=== PATIENT | female | born 1975 | race Caucasian/White ===

== ENCOUNTER 2017-01-31 19:45 | Emergency (ER) | payer OTHER ==
[2017-01-31 21:36] VITALS: BP 115/76
--- NOTE | 2017-01-31 22:02 | UC ---
Hand/Wrist HPI - HPI Summary HPI Summary: Pt presents with progessive discomfort, mild edema dorsum left hand. Pt is LHD. PT states pain worse with flexion of wrist, extension of fingers. Pt denies a specific trauma, but states did grab her dog's collar tight and may have pulled. Pt has taken motrin / apap with little relief. 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 States does type at work. No erythema. No ecchymosis. No fevers. Pt RHD. No weakness. mild paresthesia fingers Pt's medications reviewed this visit - History Of Current Complaint Chief Complaint: UCUpperExtremity Stated Complaint: ARM PAIN Time Seen by Provider: 01/31/17 21:50 Hx Obtained From: Patient Hx Last Menstrual Period: MIRENA IUD ?: No Onset/Duration: Gradual Onset Severity Initially: Mild Severity Currently: Mild Character Of Pain: Sharp, Aching Aggravating Factor(s): Movement, Lifting, Extension Alleviating: Rest Associated Signs And Symptoms: Positive: Swelling, Numbness/Tingling. Negative : Redness, Bruising, Fever, Weakness - Allergies/Home Medications Allergies/Adverse Reactions: Allergies Allergy/AdvReac Type Severity Reaction Status Date / Time Penicillins Allergy Intermediate Rash Verified 01/31/17 21:36 baby oil Allergy Unknown Unknown Uncoded 11/08/15 11:20 Reaction Details Home Medications: Home Medications Acetaminophen TAB* [Tylenol TAB*] 325 mg PO PRN 01/31/17 [History] Valproic Acid CAP(*) [Depakene CAP(*)] 01/31/17 [History] PMH/Surg Hx/FS Hx/Imm Hx Previously Healthy: Yes Endocrine History: Thyroid Disease Cardiovascular History: Hypertension - Surgical History Surgical History: Yes Surgery Procedure, Year, and Place: csection 09/03 - twins, PLASTIC SURGERY, MOLE REMOVAL - Family History Known Family History: Positive: None - Social History Occupation: Employed Full-time Lives: With Family Alcohol Use: Rare Substance Use Type: None Smoking Status (MU): Former Smoker Length of Time of Smoking/Using Tobacco: QUIT 2010 Review of Systems Constitutional: Negative Skin: Other - Left dorsum edema Eyes: Negative ENT: Negative Respiratory: Negative Cardiovascular: Negative Gastrointestinal: Negative Genitourinary: Negative Motor: Negative Neurovascular: Negative Musculoskeletal: Other: - left hand Neurological: Negative Psychological: Negative All Other Systems Reviewed And Are Negative: Yes Physical Exam Triage Information Reviewed: Yes Appearance: Well-Appearing, No Pain Distress, Well-Nourished Vital Signs: Initial Vital Signs Temp 97.4 F 01/31/17 21:32 Pulse 70 01/31/17 21:32 Resp 16 01/31/17 21:32 BP 115/76 01/31/17 21:32 Pulse Ox 99 01/31/17 21:32 Vital Signs Reviewed: Yes Eyes: Negative: Discharge ENT: Positive: Hearing grossly normal Neck: Positive: Supple, Nontender Respiratory: Positive: Chest non-tender, Lungs clear, Normal breath sounds, No respiratory distress, No accessory muscle use Cardiovascular: Positive: Other: - 2+ radial 2 + ulnar CBT < 2 sec all digits Musculoskeletal: Positive: Other: - + flex/ext elbow + pronate/supinate + TTP 2 /3/4 MC dorsum + flex/ext wrist with pain referred to digits on dorsum No palmar discomfort Neurological Exam: Normal Neurological: Positive: Alert, Other: - + thumb up, a ok, finger spread, finger cross Psychological Exam: Normal Skin Exam: Normal Diagnostics - Radiology No standard instances Xray Interpretation: No Acute Changes - no fx Radiology Interpretation Completed By: ED Physician Hand/Wrist Course/Dx - Course Course Of Treatment: Pt with persistent discomfort dorsum left hand no direct trauma. Pt did have a pull when was gripping dog collar. Pt with pain along dosrum only - mild edema. no warm, edema. Will check xray. if neg, will place spling. elevate. rest. motrin/apap. PCP f/u pt in agreement with plan - Differential Dx/Diagnosis Provider Diagnoses: hand pain Discharge - Discharge Plan Condition: Stable Disposition: HOME Patient Education Materials: Hand Sprain (ED) Referrals: Rocky Nascimento NP [Nurse Practitioner] - Additional Instructions: - wear splint for comfort and support - elevate your hand to help with swelling and pain - apply ice (Wrapped in a towel) 20 minutes at a time, 2- 3times a day - Okay to alternate ibuprofen (advil, motrin) and tylenol every 3 hours for pain. Take with food. do NOT take for more than 3-4 days - The doctor who evaluated you tonight will follow-up on your xray tomorrow- if the radiologist identifies an injury, the provider will contact you - Contact your doctor to schedule a follow-up appointment this week Contact your doctor or return with questions or concerns -
--- NOTE | 2017-02-01 07:19 | RAD ---
INDICATION: Left wrist pain. TECHNIQUE: 3 views of the left wrist were obtained. FINDINGS: The bones are in normal alignment. No fracture is seen. Joint spaces appear maintained. IMPRESSION: NO EVIDENCE FOR FRACTURE.
== END 2017-01-31 22:38 | disposition home or self-care (01) ==
LOC: UCEAST 19:45
DX: M79.642 Pain in left hand (principal); R60.0 Localized edema; E07.9 Disorder of thyroid, unspecified; I10 Essential (primary) hypertension; Z88.0 Allergy status to penicillin; Z87.891 Personal history of nicotine dependence
CPT/HCPCS: 99211; G0463

== ENCOUNTER 2017-07-01 08:33 | Emergency (ER) | payer OTHER ==
[2017-07-01 08:42] VITALS: BP 116/58
--- NOTE | 2017-07-01 08:51 | UC ---
Ear Complaint HPI - HPI Summary HPI Summary: 41 Y/O female presents with decreased hearing in L ear with "popping" sound this morning upon waking. States did have recent upper respiratory symptoms with sinus congestion. Medical history significant for hypothyroidism and "pre diabetes". Medications reviewed at this visit. - History of Current Complaint Chief Complaint: UCEar Stated Complaint: EAR COMPLAINT Time Seen by Provider: 07/01/17 08:34 Hx Obtained From: Patient Hx Last Menstrual Period: iud ?: No Onset/Duration: Gradual Onset Severity Initially: Mild Severity Currently: None Pain Intensity: 0 Pain Scale Used: 0-10 Numeric Aggravating Factors: Nothing - Allergies/Home Medications Allergies/Adverse Reactions: Allergies Allergy/AdvReac Type Severity Reaction Status Date / Time Penicillins Allergy Intermediate Rash Verified 07/01/17 08:41 baby oil Allergy Unknown Unknown Uncoded 07/01/17 08:41 Reaction Details PMH/Surg Hx/FS Hx/Imm Hx Previously Healthy: Yes Endocrine History: Hypothyroidism - Surgical History Surgical History: Yes Surgery Procedure, Year, and Place: csection 09/03 - twins, PLASTIC SURGERY, MOLE REMOVAL - Family History Known Family History: Positive: None - Social History Alcohol Use: Rare Substance Use Type: None Smoking Status (MU): Former Smoker Length of Time of Smoking/Using Tobacco: QUIT 2010 Review of Systems Constitutional: Negative Skin: Negative Eyes: Negative ENT: Negative Respiratory: Negative Cardiovascular: Negative Gastrointestinal: Negative Genitourinary: Negative Motor: Negative Neurovascular: Negative Musculoskeletal: Negative Neurological: Negative Psychological: Negative Is Patient Immunocompromised?: No All Other Systems Reviewed And Are Negative: Yes Physical Exam Triage Information Reviewed: Yes Vital Signs: Initial Vital Signs Temp 98.0 F 07/01/17 08:37 Pulse 70 07/01/17 08:37 Resp 18 07/01/17 08:37 BP 116/58 07/01/17 08:37 Pulse Ox 100 07/01/17 08:37 Vital Signs Reviewed: Yes Eye Exam: Normal Eyes: Positive: Conjunctiva Clear ENT Exam: Normal Respiratory Exam: Normal Cardiovascular Exam: Normal Cardiovascular: Positive: RRR Ear Complaint Course/Dx - Differential Dx/Diagnosis Differential Diagnosis/HQI/PQRI: Cerumen Impaction, Otitis Media Provider Diagnoses: Effusion middle ear Discharge - Discharge Plan Condition: Stable Disposition: HOME Patient Education Materials: Ear Infection (ED) Referrals: Cathy Simpson MD [Primary Care Provider] - Additional Instructions: You have fluid behind your ear but no signs of infection. Please return to urgent care for if you experience fever, chills, or increased pain.
== END 2017-07-01 09:10 | disposition home or self-care (01) ==
LOC: UCEAST 08:33
DX: H74.8X2 Other specified disorders of left middle ear and mastoid (principal); Z87.891 Personal history of nicotine dependence
CPT/HCPCS: 99211; G0463

== ENCOUNTER 2017-07-18 18:02 | Emergency (ER) | payer OTHER ==
[2017-07-18 20:44] VITALS: BP 118/76
--- NOTE | 2017-07-18 20:45 | UC ---
Ear Complaint HPI - HPI Summary HPI Summary: Pt presents with left ear pain and decreased hearing from that ear for the last 3-4 weeks. She tells me that she has seen multiple providers for this and has been referred to ENT - sees them 07/20 for initial visit. Has tried netti pot, antihistamine, antibiotics, and steroids with no relief. Denies fever, chills, sore throat, neck pain, headache, dizziness, tinnitus, or discharge. - History of Current Complaint Chief Complaint: UCEar Stated Complaint: EAR PAIN Time Seen by Provider: 07/18/17 20:38 Hx Obtained From: Patient Hx Last Menstrual Period: MIRENA IUD Onset/Duration: Gradual Onset Severity Initially: Moderate Severity Currently: Moderate Pain Intensity: 5 Pain Scale Used: 0-10 Numeric - Allergies/Home Medications Allergies/Adverse Reactions: Allergies Allergy/AdvReac Type Severity Reaction Status Date / Time Penicillins Allergy Severe Rash Verified 07/18/17 20:44 baby oil Allergy Unknown Unknown Uncoded 07/18/17 20:44 Reaction Details Home Medications: Home Medications Clindamycin HCl 07/18/17 [History] Naproxen Sodium [Aleve] 220 mg PO ONCE PRN 07/18/17 [History Confirmed 07/18/17] Pseudoephedrine TAB* [Sudafed TAB*] 60 mg PO ONCE PRN 07/18/17 [History Confirmed 07/18/17] methylPREDNISolone [Medrol Dosepak 4 MG*] 0 mg PO .SEE NANCY INSTRUCTION 07/18/17 [History Confirmed 07/18/17] PMH/Surg Hx/FS Hx/Imm Hx Psychological History: Anxiety, Depression - Surgical History Surgical History: Yes Surgery Procedure, Year, and Place: csection 09/03 - twins, PLASTIC SURGERY, MOLE REMOVAL - Family History Known Family History: Positive: None - Social History Occupation: Employed Full-time Alcohol Use: Occasionally Substance Use Type: None Smoking Status (MU): Former Smoker Length of Time of Smoking/Using Tobacco: QUIT 2010 Review of Systems Constitutional: Negative Skin: Negative Eyes: Negative ENT: Ear Ache Respiratory: Negative Cardiovascular: Negative Neurological: Negative Psychological: Negative All Other Systems Reviewed And Are Negative: Yes Physical Exam Triage Information Reviewed: Yes Appearance: Well-Appearing, No Pain Distress, Obese Vital Signs: Initial Vital Signs Temp 97.8 F 07/18/17 20:40 Pulse 82 07/18/17 20:40 Resp 16 07/18/17 20:40 BP 118/76 07/18/17 20:40 Pulse Ox 100 07/18/17 20:40 Vital Signs Reviewed: Yes Eyes: Positive: Conjunctiva Clear. Negative: Conjunctiva Inflamed, Discharge ENT: Positive: Hearing grossly normal, Pharynx normal, TMs normal, Uvula midline. Negative: Pharyngeal erythema, Nasal congestion, Nasal drainage, TM bulging, TM dull, TM red, Tonsillar swelling, Tonsillar exudate, Hoarse voice, Sinus tenderness Neck: Positive: Supple, Nontender, No Lymphadenopathy Respiratory: Positive: Lungs clear, Normal breath sounds, No respiratory distress, No accessory muscle use Cardiovascular: Positive: RRR, No Murmur, Pulses Normal Neurological: Positive: Alert, Other: - CN II-XII grossly intact. Psychological: Positive: Age Appropriate Behavior Skin: Negative: rashes Ear Complaint Course/Dx - Course Course Of Treatment: Left ear pain of unknown etiology. I advised her to try flonase for possible eustachian tube dysfunction and to keep her appt with ENT in 2 days. - Differential Dx/Diagnosis Provider Diagnoses: Left ear pain Discharge - Discharge Plan Condition: Stable Disposition: HOME Prescriptions: Fluticasone NASAL SPRAY 50MCG* [Flonase NASAL SPRAY 50MCG*] 2 spray LEFT NARE DAILY #1 btl Patient Education Materials: Earache (ED) Referrals: Cathy Simpson MD [Primary Care Provider] - Additional Instructions: If you develop a fever, shortness of breath, chest pain, new or worsening symptoms - please call your PCP or go to the ED. 1) Please keep your appointment with ENT for 07/20 for follow up
== END 2017-07-18 21:55 | disposition home or self-care (01) ==
LOC: UCEAST 18:02
DX: H92.02 Otalgia, left ear (principal); Z87.891 Personal history of nicotine dependence
CPT/HCPCS: 99212; G0463

== ENCOUNTER 2018-03-09 21:24 | Emergency (ER) | payer OTHER ==
[2018-03-09 21:43] VITALS: BP 123/59
--- NOTE | 2018-03-09 21:58 | UC ---
Respiratory Complaint HPI - HPI Summary HPI Summary: Patient presents to urgent care with her daughter. Patient's a 42-year-old female who states over the last 3-4 days she's progressively had the sense that she can't take a deep breath, patient with pleuritic chest pain, and patient states has some chest heaviness. Patient states she hasn't been sleeping well related to this. Patient denies cough. Patient denies a fever. Patient states she had a little bit of head congestion and she's not sure she has postnasal drip. Patient has not taken any medication to try to treat this. Patient does not have any wheezing or or was sling. Patient states she spoke to her PCP where the office and where she is employed today. PCP stated it could be a virus. Patient states tonight it seemed like her breathing was getting worse, patient states she started to feel panicky, so patient's that she decided to come get checked. Patient does not have a history of blood clots. Patient does take hormones for control and a Mirena ring. Patient has no recent travel, no calf pain. Patient denies cardiac history. Patient does not have a history of asthma, does not smoke, does not have any remote history lung disease. Patient denies sick contacts. She denies headache or vision changes. Pt's medications reviewed this visit - History of Current Complaint Chief Complaint: UCChestPain Stated Complaint: DIFFICULTY BREATHING Time Seen by Provider: 03/09/18 21:57 Hx Obtained From: Patient Hx Last Menstrual Period: implant Pain Intensity: 0 - Allergies/Home Medications Allergies/Adverse Reactions: Allergies Allergy/AdvReac Type Severity Reaction Status Date / Time Penicillins Allergy Severe Rash Verified 03/09/18 21:43 baby oil Allergy Unknown Unknown Uncoded 07/18/17 20:44 Reaction Details Home Medications: Home Medications Fexofenadine/Pseudoephedrine [Ivette-D 24 Hour Tablet] 1 tab PO DAILY 03/09/18 [History Confirmed 03/09/18] PMH/Surg Hx/FS Hx/Imm Hx Previously Healthy: Yes - Surgical History Surgical History: Yes Surgery Procedure, Year, and Place: csection 09/03 - twins, PLASTIC SURGERY, MOLE REMOVAL - Family History Known Family History: Positive: None Family History: no h/o coag d/o - Social History Alcohol Use: Rare Substance Use Type: None Smoking Status (MU): Former Smoker Length of Time of Smoking/Using Tobacco: QUIT 2010 Review of Systems Constitutional: Negative Respiratory: Shortness Of Breath Cardiovascular: Chest Pain All Other Systems Reviewed And Are Negative: Yes Physical Exam - Summary Physical Exam Summary: Vital Signs Reviewed: Yes A+Ox3, no distress Eyes: Conjunctiva Clear, ASHLEIGH. EOM intact and full ENT: Hearing grossly normal TM x 2 clear, mmoist, uvula midline, no exudate, no erythema Neck: Positive: Supple, no bruits Respiratory: Positive: No respiratory distress, No accessory muscle use + CTA throughout no w/r Cardiovascular: RRR nl s1, s2 no m/r CBT <2 sec, no chest wall pain with palpation abd soft + BS nt/nd no guarding, no distension Musculoskeletal Exam: MCNULTY x 4 without difficulty Strength Intact, ROM Intact Neurological: Positive: Alert, + sensation throughout Psychological: Positive: Normal Response To Family Skin: Positive: no rash, no ecchymosis Triage Information Reviewed: Yes Vital Signs: Initial Vital Signs Temp 98 F 03/09/18 21:40 Pulse 64 03/09/18 21:40 Resp 16 03/09/18 21:40 BP 123/59 03/09/18 21:40 Pulse Ox 98 03/09/18 21:40 UC Diagnostic Evaluation - Laboratory O2 Sat by Pulse Oximetry: 98 - EKG Cardiac Rate: NL Cardiac Rhythm: Sinus: Normal Ectopy: None Respiratory Course/Dx - Course Course Of Treatment: Pt present with 4 days progressive feeling MICHELLE, pleuritic chest pain and feeling cheest tightness. Pt had mild head congestion earlier this we- improved. no analgesia taken. Pt with no acute changes to EKG, stable VS. Pt with progressive sx x 4 days - differential includes PE, CAD. recommend pt to ED for further eval. Will give ASA. oxygen. iv. transfer by [place]. Pt comfortable and in agreement with plan. report to [facility] in ED at 10:15pm - Differential Dx/Diagnosis Provider Diagnoses: pleuritic CP, SOB Discharge - Sign-Out/Discharge Documenting (check all that apply): Patient Departure All imaging exams completed and their final reports reviewed: No Studies - Discharge Plan Condition: Stable Disposition: TRANS HIGHER LVL OF CARE FAC Referrals: Cathy Simpson MD [Primary Care Provider] - - Billing Disposition and Condition Condition: STABLE Disposition: Trans Higher Lvl of Care Fac
[2018-03-09] MEDS ORDERED: Aspirin 81 mg CHEW TAB* 81 MG TAB.CHEW PO ONE (22:14)
[2018-03-09] MEDS ORDERED: NS 0.9% 1000 ML* 1,000 ML IV ONE (22:15)
--- OUTSIDE RECORDS SUMMARY | 2018-03-09 22:19 | XMS REPORT | Continuity of Care Document ---
:1975 External Reference #:[id number] Author Name Sean Dunlap MD Address [address] [place] [address] Care Team Providers Name Role Phone Cathy Alcala DR. Primary Care Physician Unavailable Payers Type Date Identification Numbers Payment Provider Subscriber Policy Number: [id number] [facility] Radha Burns PayID: [id number] [address] [address] [place] [address] Advance Directives Description No Information Available Problems Date Description Provider Status Onset: 2017 Chronic rhinitis Sean Dunlap MD Active Onset: 2017 Other specified disorders of Eustachian Sean Dunlap MD Active tube, bilateral Family History Date Family Member(s) Problem(s) Comments General Allergies General Hearing Loss General Heart Attack General Heart Disease General Thyroid Disease Social History Type Date Description Comments Sex Unknown Occupation Unknown Tobacco Use Start: Unknown End: Unknown Former Cigarette Smoker 1 Pack Daily Tobacco Use Start: Unknown Never Smoked Cigars Tobacco Use Start: Unknown Never Smoked A Pipe Smokeless Tobacco Never Used Smokeless Tobacco ETOH Use Currently rarely consumes alcohol Allergies, Adverse Reactions, Alerts Date Description Reaction Status Severity Comments 2017 Penicillin Active 2017 Proxibarbal Active Medications Medication Date Status Form Strength Qnty SIG Indications Ordering Provider Fexofenadine 00/00/ Active Tablets 180mg Unknown HCL 0000 Buspirone HCL // Active Tablets 5mg Take 2 Unknown 0000 Tablets By Mouth In The Morning And 1 Tablet AT Bedtime Gabapentin 00// Active Capsules 100mg Take 1-3 Unknown 0000 Capsules By Mouth Every Night AT Bedtime as Directed Divalproex / Active Tablets DR 250mg Take 1 Unknown Sodium 0000 Tablet By Mouth Every Night Fluticasone 00/ Active Suspension 50mcg/Act Use 2 Unknown Propionate 0000 Sprays In The Left Nostril Daily Multivitamin / Active Tablets as Unknown Adult 0000 directed Fish Oil 00/ Active Capsules 1000mg 1 by mouth Unknown 0000 every day Melatonin 00/ Active Capsules 10mg 2 by mouth Unknown 0000 every at bedtime as needed Acidophilus 00// Active Capsules Unknown 0000 Adrenatone / Active Capsules Unknown 0000 Vitamin D-3 / Active Tablets 5000Unit 1 by mouth Unknown 0000 every day Immunizations Description No Information Available Vital Signs Date Vital Result Comment 02/08/2018 2:25pm Weight 295.00 lb Weight 133.812 kg Height 65.50 inches 5'5.50" Height in cm's 166.4 cm BMI (Body Mass Index) 48.3 kg/m2 2017 9:22am Weight 295.00 lb Weight 133.812 kg Height 65.50 inches 5'5.50" Height in cm's 166.4 cm BMI (Body Mass Index) 48.3 kg/m2 Results Description No Information Available Procedures Date Code Description Status 01/19/2018 10274 Prick Test Completed Encounters Type Date Location Provider Dx Diagnosis Office Visit 02/08/2018 [place] Cathy Gauthier Chronic rhinitis 2:45p 06/05/07 H69.83 Other specified disorders of Eustachian tube, bilateral Office Visit 2017 9:30a [place] 06/05/07 Cathy Gauthier Chronic rhinitis H69.83 Other specified disorders of Eustachian tube, bilateral Plan of Treatment 02/08/2018 - LUIS F Gauthier31.Christoph Chronic [id number] Other specified disorders of Eustachian tube, bilateralComments:She is improving while avoiding certain types of food, she is not interested in immunotherapy presently she under taping topical steroids as needed for her eustachian tube symptoms. Recheck when necessary. About 20 minutes was spent discussing the findings of the allergy testing and symptomatic control as well as avoidance techniques.
== END 2018-03-09 22:45 | disposition short-term general hospital (02) ==
LOC: UCEAST 21:24
DX: R07.89 Other chest pain (principal); R06.02 Shortness of breath; R06.00 Dyspnea, unspecified; Z88.0 Allergy status to penicillin; Z91.09 Other allergy status, other than to drugs and biological substances; Z87.891 Personal history of nicotine dependence
CPT/HCPCS: 93005; 99213; A9270-GY; G0463

== ENCOUNTER 2018-03-09 23:02 | Emergency (ER) | payer OTHER ==
--- NOTE | 2018-03-09 23:39 | ED ---
Shortness of Breath - HPI Summary HPI Summary: The patient is a 42 y/o F presenting to [facility] with a chief complaint of intermittent SOB for the last four days. She states she began feeling anxious and has since had trouble taking complete breaths, causing her to have some associated chest tightness, but she denies wheezing. She has talked to her PCP, who suggested that she could have a potential allergy. She has no hx of asthma or similar experiences. She reports that a week ago she forgot to take her bipolar medication, but realized immediately after she was feeling anxious and took the medication. She presented to [facility], where she had an EKG taken that was read as normal. She currently has some tightness in her chest. - History of Current Complaint Time Seen by Provider: 03/09/18 23:31 Hx Obtained From: Patient Onset/Duration: Sudden Onset, Lasting Days - four, Still Present Timing: Intermittent Episodes Lasting: Current Severity: Mild Dyspnea At: Rest Aggrevating Factors: Nothing Alleviating Factors: Nothing - Allergy/Home Medications Allergies/Adverse Reactions: Allergies Allergy/AdvReac Type Severity Reaction Status Date / Time Penicillins Allergy Severe Rash Verified 03/09/18 21:43 baby oil Allergy Unknown Unknown Uncoded 07/18/17 20:44 Reaction Details PMH/Surg Hx/FS Hx/Imm Hx Endocrine/Hematology History: Reports: Hx Diabetes - PRE DIABETES, Hx Thyroid Disease - HYPOTHYROID Psychiatric History: Reports: Hx Bipolar Disorder - Cancer History Hx Chemotherapy: No Hx Radiation Therapy: No - Surgical History Surgery Procedure, Year, and Place: csection 09/03 - twins, PLASTIC SURGERY, MOLE REMOVAL Infectious Disease History: Reports: Hx Shingles Denies: History Other Infectious Disease, Traveled Outside the [place] in Last 30 Days - Family History Known Family History: Positive: Cardiac Disease, Diabetes - Social History Alcohol Use: Rare Substance Use Type: Reports: None Smoking Status (MU): Former Smoker Length of Time of Smoking/Using Tobacco: QUIT 2010 Review of Systems Positive: Chest Pain - chest tightness Positive: Shortness Of Breath, Other - NEGATIVE: wheezing Positive: Anxious All Other Systems Reviewed And Are Negative: Yes Physical Exam - Summary Physical Exam Summary: Appearance: Well-appearing, Well-nourished, lying in bed comfortably Skin: Warm, dry, no obvious rash Eyes: sclera anicteric, no conjunctival pallor ENT: mucous membranes moist, pharynx appears normal Neck: Supple, nontender Respiratory: Clear to auscultation, no signs of respiratory distress Cardiovascular: Normal S1, S2. No murmurs. Normal distal pulses in tibial and radial bilaterally. Abdomen: Soft, nontender, normal active bowel sounds present Musculoskeletal: Normal, Strength/ROM Intact Neurological: A&Ox3, awake and alert, mentation is normal, speech is fluent and appropriate Psychiatric: affect is normal, does not appear anxious or depressed Triage Information Reviewed: Yes Vital Signs Reviewed: Yes Diagnostics - Laboratory Result Diagrams: 03/09/18 23:55 03/09/18 23:55 Lab Statement: Any lab studies that have been ordered have been reviewed, and results considered in the medical decision making process. - Radiology CXR Xray Interpretation: No Acute Changes - No acute disease. ED physician has reviewed this report. Radiology Interpretation Completed By: Radiologist Course/Dx - Diagnoses Provider Diagnoses: Dyspnea, Anxiety Discharge - Sign-Out/Discharge Documenting (check all that apply): Patient Departure - Patient will be discharged home. - Discharge Plan Condition: Good Disposition: HOME Patient Education Materials: Dyspnea (ED), Anxiety (ED) Referrals: Cathy Simpson MD [Primary Care Provider] - If Needed Additional Instructions: Hopefully your symptoms will start to improve as your medication gets back in your system. We did not find any evidence of a dangerous cause of your symptoms. - Billing Disposition and Condition Condition: GOOD Disposition: Home - Attestation Statements Document Initiated by Renibsvetlana: Yes Documenting Scribe: Mayda Holloway Provider For Whom Lisa is Documenting (Include Credential): Dr. Armaan Givens MD Scribe Attestation: Mayda Clayton scribed for Dr. Armaan Givens MD on 03/10/18 at 0145. Scribe Documentation Reviewed: Yes Provider Attestation: The documentation as recorded by the Mayda fuentes accurately reflects the service I personally performed and the decisions made by me, Dr. Armaan Givens MD
[2018-03-10 00:06] LABS: ABS Basophils 0.1 10^3/ul (0-0.2); ABS Eosinophils 0.1 10^3/ul (0-0.6); ABS Lymphocytes 2.6 10^3/ul (1.0-4.8); ABS Monocytes 0.5 10^3/ul (0-0.8); ABS Neutrophils 4.3 10^3/ul (1.5-7.7); ABS Nucleated RBC 0 10^3/ul; Eosinophil % 1.1 % (0-6); Hematocrit 39 % (35-47); Hemoglobin 13.1 g/dl (12.0-16.0); Lymphocyte % 34.6 % (25-47); Mean Corpuscular HGB Conc 34 g/dl (31-36); Mean Corpuscular Hemoglobin 30 pg (27-31); Mean Corpuscular Volume 89 fL (80-97); Mean Platelet Volume 9.7 um3 (7.4-10.4); Nucleated Red Blood Cells % 0.1; Platelet Count 183 10^3/ul (150-450); Red Blood Count 4.39 10^6/ul (4.00-5.40); Red Cell Distribution Width 14 % (10.5-15); White Blood Count 7.6 10^3/ul (3.5-10.8)
[2018-03-10 02:03] VITALS: BP 156/79
--- NOTE | 2018-03-10 08:52 | RAD ---
INDICATION: Dyspnea. Chest pain and slight shortness of breath over the last 3 days. COMPARISON: September 30, [address] TECHNIQUE: Dual energy PA and routine lateral views of the chest were obtained. REPORT: No focal pulmonary lesion, compelling alveolar consolidation, pleural effusion, pneumothorax. The heart, pulmonary vasculature, and mediastinal contours are unremarkable. IMPRESSION: #. No evidence for acute intrathoracic disease. R0
== END 2018-03-10 01:25 | disposition home or self-care (01) ==
LOC: ED 23:02
DX: R06.00 Dyspnea, unspecified (principal); F41.9 Anxiety disorder, unspecified; Z87.898 Personal history of other specified conditions; Z88.0 Allergy status to penicillin
CPT/HCPCS: 36415; 71046; 80053; 84484; 84702; 85025; 85379; 99283

== ENCOUNTER 2018-07-15 09:45 | Emergency (ER) | payer OTHER ==
[2018-07-15 10:10] VITALS: BP 132/83
--- NOTE | 2018-07-15 10:34 | UC ---
Respiratory Complaint HPI - HPI Summary HPI Summary: Patient is 42 year old female , who present today to the urgent care with upper respiratory for past 3 days. 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 She denies any fevers or body aches Denies chest pain or shortness of breath . Denies any abdominal pain , nausea or vomiting , diarrhea or constipation. - History of Current Complaint Chief Complaint: UCRespiratory Stated Complaint: THROAT PAIN Time Seen by Provider: 07/15/18 10:12 Hx Obtained From: Patient Hx Last Menstrual Period: mirena Pain Intensity: 5 - Allergies/Home Medications Allergies/Adverse Reactions: Allergies Allergy/AdvReac Type Severity Reaction Status Date / Time Penicillins Allergy Severe Rash Verified 07/15/18 10:10 baby oil Allergy Unknown Unknown Uncoded 07/18/17 20:44 Reaction Details PMH/Surg Hx/FS Hx/Imm Hx - Additional Past Medical History Additional PMH: Bipolar Fibromyalgia Previously Healthy: Yes - Surgical History Surgical History: Yes Surgery Procedure, Year, and Place: csection 09/03 - twins, PLASTIC SURGERY, MOLE REMOVAL - Family History Known Family History: Positive: Cardiac Disease, Diabetes - Social History Alcohol Use: Rare Substance Use Type: None Smoking Status (MU): Former Smoker Length of Time of Smoking/Using Tobacco: QUIT 2010 Review of Systems All Other Systems Reviewed And Are Negative: Yes Constitutional: Positive: Negative Skin: Positive: Negative Eyes: Positive: Negative ENT: Positive: Ear Ache - Bilateral, Other - Congestion Respiratory: Positive: Cough - Productive Cardiovascular: Positive: Negative Gastrointestinal: Positive: Negative Genitourinary: Positive: Negative Motor: Positive: Negative Neurovascular: Positive: Negative Musculoskeletal: Positive: Negative Neurological: Positive: Negative Psychological: Positive: Negative Is Patient Immunocompromised?: No Physical Exam - Summary Physical Exam Summary: Physical Exam: Const: Appears well. No signs of apparent distress present. Alert and oriented x 3. Musculo: Walks with a normal gait. Head/Face: Atraumatic, normocephalic on inspection. Eyes: EOMI and PERRLA in both eyes. Conjunctivae clear. No discharge noted ENT: Hearing normal, TM mildly red and bulging, worse on right, . No tenderness on palpation / manipulation of Tragus. No mastoid tenderness. No pharyngeal erythema or exudates . Uvula is midline. There is anterior cervical nontender lymphadenopathy noted. Respiratory: Respirations are unlabored. Lungs clear to auscultation bilaterally, no wheezing , rhonchi or rales noted . CVS: Regular rate and Rhythm, S1S2 normal , no murmurs identified. Extremities: Peripheral circulation is grossly normal. Pulses 2+ Abdomen : Soft non tender , nondistended , Bowel sounds present . No guarding , rebound tenderness or rigidity noted. Skin: No lesions or rash located on the upper extremities or on the lower extremities. Neuro: Cranial nerves II to XII intact, motor and sensory intact. DTR Intact bilaterally. Mood is normal. Affect is normal. Triage Information Reviewed: Yes Vital Signs: Initial Vital Signs Temp 97.9 F 07/15/18 10:06 Pulse 72 07/15/18 10:06 Resp 16 07/15/18 10:06 BP 132/83 07/15/18 10:06 Pulse Ox 100 07/15/18 10:06 Vital Signs Reviewed: Yes UC Diagnostic Evaluation - Laboratory O2 Sat by Pulse Oximetry: 100 Respiratory Course/Dx - Course Course Of Treatment: During the visit today, we obtained a rapid flu and strep test which were negative. I suspect viral illness with laryngitis and possible otitis media secondary to viral. . We discussed the findings and further plan. I will prescribe the antibiotic for the possible ear infection to the pharmacy, to be filled only if symptoms not resolving over the next 2 days. Patient expressed understanding . - Differential Dx/Diagnosis Provider Diagnosis: Laryngitis, Viral syndrome Discharge - Sign-Out/Discharge Documenting (check all that apply): Patient Departure All imaging exams completed and their final reports reviewed: No Studies - Discharge Plan Condition: Stable Disposition: HOME Prescriptions: Azithromyxin NANCY (NF) [Z-Nancy (Zithromax) 250 mg tabs #6] 2 tab PO .TODAY, THEN 1 DAILY #6 tab Patient Education Materials: Laryngitis (ED), Viral Syndrome (ED) Referrals: Cathy Simpson MD [Primary Care Provider] - 1 Week Additional Instructions: Your ear pain appears secondary to viral and should resolve along with other symptoms. Please start taking the medication as prescribed to the pharmacy only if your symptoms do not improve over the next 2-3 days. Keep yourself hydrated saline gargles will be helpful Follow up with your primary care doctor in 2-3 days Patients blood pressure slightly high in in pre-hypertensive range today , plan follow up with PCP for better control Return to Urgent care / ER if symptoms get worse. - Billing Disposition and Condition Condition: STABLE Disposition: Home
[2018-07-15 11:23] LABS: Influenza A Molecular NEGATIVE (Negative); Influenza B Molecular NEGATIVE (Negative)
== END 2018-07-15 11:37 | disposition home or self-care (01) ==
LOC: UCEAST 09:45
DX: J04.0 Acute laryngitis (principal); B34.9 Viral infection, unspecified; Z87.891 Personal history of nicotine dependence; Z88.0 Allergy status to penicillin; Z91.09 Other allergy status, other than to drugs and biological substances
CPT/HCPCS: 87651; 99212; G0463

== ENCOUNTER 2019-06-04 20:17 | Emergency (ER) | payer OTHER ==
--- NOTE | 2019-06-04 20:21 | UC ---
Respiratory Complaint HPI - HPI Summary HPI Summary: 43 yo female presents with cough. She tells me that for the last 4 days has had a productive cough, fatigue, and feeling short of breath at times. She saw her PCP yesterday for this and was placed on zpak. She took 1 day of the zpak and today feels "bubbling" and rattling in her lungs when she takes a deep breath. She denies hx of asthma, but has used a nebulizer in the past for URI issues. Denies fever, sore throat, chest pain, n/v. nothing OTC for symptoms. - History of Current Complaint Stated Complaint: URI Time Seen by Provider: 06/04/19 20:21 Hx Obtained From: Patient Hx Last Menstrual Period: mirena Onset/Duration: Gradual Onset Severity Initially: Mild Severity Currently: Mild Pain Intensity: 3 Pain Scale Used: 0-10 Numeric - Allergies/Home Medications Allergies/Adverse Reactions: Allergies Allergy/AdvReac Type Severity Reaction Status Date / Time Penicillins Allergy Severe Rash Verified 06/04/19 20:27 baby oil Allergy Unknown Unknown Uncoded 07/18/17 20:44 Reaction Details Home Medications: Home Medications Venlafaxine CAP (NF) [Effexor CAP (NF)] 75 mg PO DAILY 06/04/19 [History Confirmed 06/04/19] PMH/Surg Hx/FS Hx/Imm Hx Neurological History: Seizures Psychological History: Anxiety, Depression - Surgical History Surgical History: Yes Surgery Procedure, Year, and Place: csection 09/03 - twins, PLASTIC SURGERY, MOLE REMOVAL - Family History Known Family History: Positive: Cardiac Disease, Diabetes - Social History Lives: With Family Alcohol Use: Rare Substance Use Type: None Smoking Status (MU): Former Smoker Length of Time of Smoking/Using Tobacco: QUIT 2010 Review of Systems All Other Systems Reviewed And Are Negative: No Constitutional: Positive: Fatigue Skin: Positive: Negative Eyes: Positive: Negative ENT: Positive: Negative Respiratory: Positive: Shortness Of Breath, Cough Cardiovascular: Positive: Negative Gastrointestinal: Positive: Negative Neurovascular: Positive: Negative Neurological: Positive: Negative Psychological: Positive: Negative Physical Exam - Summary Physical Exam Summary: GENERAL: NAD. WDWN. No pain distress. SKIN: No rashes, sores, lesions, or open wounds. HEENT: Head: AT/NC Eyes: Conjunctiva clear without inflammation or discharge. Ears: Hearing grossly normal. TMs intact, no bulging, erythema, or edema. Nose: Nasal mucosa pink and moist. NTTP maxillary and frontal sinus. Throat: Posterior oropharynx without exudates, erythema, or tonsillar enlargement. Uvula midline. NECK: Supple. Nontender. No lymphadenopathy. CHEST: Mild wheezing throughout. No r/r. No accessory muscle use. Breathing comfortably and in no distress. CV: RRR. Pulses intact. Cap refill <2seconds NEURO: Alert. PSYCH: Age appropriate behavior. Triage Information Reviewed: Yes Vital Signs: Vital Signs: Temp Pulse Resp BP Pulse Ox 98.1 F 102 16 110/70 96 06/04/19 20:21 06/04/19 20:21 06/04/19 20:21 06/04/19 20:21 06/04/19 20:21 Vital Signs Reviewed: Yes Diagnostics - Radiology CXR Radiology Interpretation Completed By: ED Physician Summary of Radiographic Findings: Right lobe PNA Respiratory Course/Dx - Course Course Of Treatment: CXR wet read with right lobe PNA. In the clinic pt was given a duoneb treatment with good relief of wheezing. She is currently on zpak - given high local resistance to zpak alone, will add CEFDINIR BID for 5 days Will rx for an albuterol inhaler and have her continue the zpak. - Differential Dx/Diagnosis Provider Diagnosis: Pneumonia Discharge ED - Sign-Out/Discharge Documenting (check all that apply): Patient Departure All imaging exams completed and their final reports reviewed: No - Discharge Plan Condition: Stable Disposition: HOME Prescriptions: Albuterol HFA INHALER* [Ventolin HFA Inhaler*] 1 - 2 puff INH Q6H PRN #1 mdi PRN Reason: Sob/Wheezing Cefdinir [Cefdinir 300 MG CAP] 300 mg PO BID #10 cap Patient Education Materials: Pneumonia (ED) Referrals: Cathy Simpson MD [Primary Care Provider] - Additional Instructions: If you develop a fever, shortness of breath, chest pain, new or worsening symptoms - please call your PCP or go to the ED immediately. Your chest x-ray appears that you have pneumonia. --- The radiologist will review this in the morning and we will call you with any changes I recommend that you continue the zpak as prescribed and also start the CEFDINIR antibiotic Please schedule a follow up appointment with your primary doctor in 4 weeks for a recheck to make sure the pneumonia has resolved - Billing Disposition and Condition Condition: STABLE Disposition: Home
[2019-06-04 20:35] VITALS: BP 110/70
[2019-06-04] MEDS ORDERED: Albuterol/Ipratropium NEB.SOL* Albuterol 2.5 MG/Ipratropium 0.5 MG 3 ML INH ONE (20:38)
--- NOTE | 2019-06-05 07:05 | UC ---
- Progress Note Progress Note: Reviewed chest xray report per Dr. Abraham: "small right basilar infiltrate", consistent with wet read. Patient being treated for RL pneumonia, no change in treatment plan. Course/Dx - Diagnoses Provider Diagnoses: Pneumonia Discharge ED - Sign-Out/Discharge Documenting (check all that apply): Post-Discharge Follow Up All imaging exams completed and their final reports reviewed: Yes - Discharge Plan Condition: Stable Disposition: HOME Prescriptions: Albuterol HFA INHALER* [Ventolin HFA Inhaler*] 1 - 2 puff INH Q6H PRN #1 mdi PRN Reason: Sob/Wheezing Cefdinir [Cefdinir 300 MG CAP] 300 mg PO BID #10 cap Patient Education Materials: Pneumonia (ED) Referrals: Cathy Simpson MD [Primary Care Provider] - Additional Instructions: If you develop a fever, shortness of breath, chest pain, new or worsening symptoms - please call your PCP or go to the ED immediately. Your chest x-ray appears that you have pneumonia. --- The radiologist will review this in the morning and we will call you with any changes I recommend that you continue the zpak as prescribed and also start the CEFDINIR antibiotic Please schedule a follow up appointment with your primary doctor in 4 weeks for a recheck to make sure the pneumonia has resolved - Billing Disposition and Condition Condition: STABLE Disposition: Home
== END 2019-06-04 21:24 | disposition home or self-care (01) ==
LOC: UCEAST 20:17
DX: J18.9 Pneumonia, unspecified organism (principal); F32.9 Major depressive disorder, single episode, unspecified; Z87.891 Personal history of nicotine dependence; Z88.0 Allergy status to penicillin; Z91.09 Other allergy status, other than to drugs and biological substances
CPT/HCPCS: 71046; 99212; A9270-GY; G0463